=== PATIENT | female | born 1960 | race Caucasian/White ===

== ENCOUNTER 2023-08-13 06:46 | Day surgery (SDC) | payer MEDICARE ==
[2023-07-31 14:44] VITALS: BP 115/72
[~2023-08-13] VITALS: Ht 160 cm; Wt 100.0 kg
[~2023-08-13 06:46] MED LIST: CRANBERRY450 M2 PO; EFFEXOR XR75 MG PO; HYDROCHLOROTHIA25 MG PO; LACTATED RINGER'S 1,000 ML IV SCH; LEVOTHYROXINE175 MC1 PO; LOVENOX100 MG/1 M; OMEPRAZOLE20 M1 PO; PRAMIPEXOLE D0.25 MG PO; VITAMIN D325 MC4 PO; WARFARIN SODIU2.5 MG PO; ZESTRIL10 MG PO; ZOCOR20 MG PO
[2023-08-13] MEDS ORDERED: ondansetron HCL 4 MG TAB PO SCH (07:00)
[2023-08-13] MEDS ORDERED: PANTOPRAZOLE SODIUM 40 MG TABEC PO SCH (07:00)
[2023-08-13] MEDS ORDERED: INTRA-ARTICULAR ANALGESIC INJECTION XX SCH (07:00)
[2023-08-13] MEDS ORDERED: OXYCODONE HCL 5 MG TAB PO SCH (07:00)
[2023-08-13] MEDS ORDERED: IBLOOD GLUCOSE TEST STRIP 1 EA TEST VI PRN (07:00)
[2023-08-13] MEDS ORDERED: ROPIVACAINE IN 0.9% SOD CHL/PF 545 ML ELS.PMP.HR IRRIGATION SCH (07:00)
[2023-08-13] MEDS ORDERED: LIDOCAINE HCL 1% 5 ML SDV INJ ONE (07:00)
[2023-08-13] MEDS ORDERED: GABAPENTIN 600 MG TAB PO SCH (07:00)
[2023-08-13] MEDS ORDERED: CEFAZOLIN SODIUM 2 GM/20 ML SYR IV SCH ×2 (07:00→18:00)
[2023-08-13] MEDS ORDERED: TRANEXAMIC ACID 2,000 MG in SODIUM CHLORIDE 0.9% 100 ML IV SCH (07:00)
[2023-08-13 07:07] VITALS: BP 152/73
[2023-08-13] MEDS ORDERED: BUPROPION XL300 MG PO (07:12)
[2023-08-13] MEDS ORDERED: HYDROCODON-ACE1 EA10 PO (07:13)
--- NOTE | 2023-08-13 07:37 | NUR ---
VISITED DURING SPIRITUAL CARE ROUNDS. PT RECEIVING NURSING CARE. DID NOT INTERRUPT. PROVIDED PRAYER.
--- NOTE | 2023-08-13 07:42 | NUR ---
VISITED DURING SPIRITUAL CARE ROUNDS. PT AND SUPPORT PERSON EXHIBIT STRONG RELATIONAL RESOURCES, DENIED IMMEDIATE NEEDS. PROVIDED SUPPORTIVE PRESENCE, HOSPITALITY, ANTICIPATORY GUIDANCE, PRAYER. PT AND ELECTROCARDIOGRAPH REPAIRER EXPRESSED GRATITUDE, HOPE.
[2023-08-13] MEDS ORDERED: Ropivacaine HCl 20 MG/10 ML AMP ONE (07:49)
[2023-08-13] MEDS ORDERED: MIDAZOLAM HCL 2 MG/2 ML VIAL ONE (09:32)
[2023-08-13] MEDS ORDERED: SODIUM CHLORIDE 0.9% 20 ML IV ONE (09:32)
[2023-08-13] MEDS ORDERED: dexmedeTOMIDine HCl 200 MCG/2 ML VIAL ONE (09:32)
[2023-08-13] MEDS ORDERED: DEXAMETHASONE SOD PHOS 4 MG/ML VIAL ONE (09:32)
[2023-08-13] MEDS ORDERED: Ropivacaine HCl 0.5% 30 ML VIAL ONE (09:32)
[2023-08-13] MEDS ORDERED: LIDOCAINE HCL 2% 5 ML SDV ONE ×2 (09:32→10:33)
[2023-08-13 10:14] LABS: INR 1.07 (0.80-1.30); PROTIME 13.2 Sec (11.2-14.2)
[2023-08-13] MEDS ORDERED: KETOROLAC TROMETHAMINE 15 MG/ML VIAL IV PRN (10:15)
[2023-08-13] MEDS ORDERED: OXYCODONE HCL 5 MG TAB PO PRN (10:15)
[2023-08-13] MEDS ORDERED: propofoL 200 MG/20 ML VIAL ONE (10:33)
[2023-08-13] MEDS ORDERED: TRANEXAMIC ACID 1,000 MG/10 ML AMP ONE (11:05)
[2023-08-13] MEDS ORDERED: LACTATED RINGER'S 1,000 ML IV ONE (11:47)
[2023-08-13] MEDS ORDERED: KETOROLAC TROMETHAMINE 30 MG/ML VIAL ONE (11:49)
[2023-08-13] MEDS ORDERED: SENNA LAX8.6 MG PO (12:08)
[2023-08-13] MEDS ORDERED: GABAPENTIN300 MG PO (12:08)
[2023-08-13] MEDS ORDERED: OXYCODONE HCL5 MG PO (12:08)
[2023-08-13] MEDS ORDERED: TRANEXAMIC ACID 2,000 MG in SODIUM CHLORIDE 0.9% 100 ML IV ONE (13:00)
[2023-08-13 13:02] VITALS: BP 144/78
--- NOTE | 2023-08-13 13:06 | NUR ---
08/13/23 1306 Miriam Lunsford 1205 PT ARRIVED IN PACU WIDE AWAKE WITH NO C/O'S. ON QUE SET AT 4ML/HR. 1213 XRAY DONE AT BEDSIDE. 1220 CRYO CUFF PLACED ON L KNEE. PT C/O TIGHTNESS BEHIND L KNEE. PLACED PILLOW FOR COMFORT WITH NO SUCCESS. 1230 PILLOW REMOVED AND PT MOVING BILAT LEGS. 1245 GLASSES RETURNED TO PT. 1300 TO DS. REPORT GIVEN TO RN.
--- NOTE | 2023-08-13 13:11 | NUR ---
le 1300 PATIENT ALERT AND ORIENTED. BREATHING EQUAL AND UNLABORED. OXYGEN SATURATIONS ABOVE 90% ON 1 LITER. TITRATED DOWN TO ROOM AIR. PATIENT DENIES BEING NAUSEATED. PATIENT SURGICAL DRESSING CLEAN, DRY AND INTACT. SCD'S ON. CRYO CUFF ON. IVF INFUSING. CMST INTACT. PATIENT SPINAL RESOLVED. DAUGHTER AT BEDSIDE. CALL LIGHT WITHIN REACH. NO FUTHER NEEDS. NO QUESTIONS AT THIS TIME.
[2023-08-13 13:54] VITALS: BP 112/71
--- NOTE | 2023-08-13 14:38 | NUR ---
PT LEAVES THE DEPARTMENT WITH PHYSICAL THERAPY.
[2023-08-13] MEDS ORDERED: ACETAMINOPHEN 500 MG TAB PO SCH (15:00)
[2023-08-13] MEDS ORDERED: GABAPENTIN 300 MG CAP PO SCH (15:00)
[2023-08-13 15:14] VITALS: BP 120/61
--- NOTE | 2023-08-13 16:44 | NUR ---
LE 1356-PT LAYING IN BED AWAKE WATCHING TV. RESP EVEN AND UNLABORED. REPORTS SOME DISCOMFORT BEHIND KNEE. DENIES NAUSEA. DRESSING IS CLEAN, DRY, AND INTACT. ON-Q PUMP SET AT 4. CRYO CUFF IN PLACE AND RUNNING. NO OTHER NEEDS AT THIS TIME. DAUGHTER IN ROOM. CALL LIGHT WITHIN REACH.
--- NOTE | 2023-08-13 16:47 | NUR ---
LE 1514-PT LAYING IN BED. RESP EVEN AND UNLABORED. DENIES NAUSEA. DRESSING CLEAN, DRY, AND INTACT. ON-Q PUMP SET AT 4. CRYO CUFF IN PLACE AND RUNNING. PT DRINKING WATER. DAUGHTER AT BEDSIDE. NO OTHER NEEDS AT THIS TIME. CALL LIGHT WITHIN REACH.
--- NOTE | 2023-08-13 16:54 | NUR ---
LE 1600-PT UP TO RESTROOM. PT VOIDS 200ML OF YELLOW URNIE. LE 1604-PT BACK TO ROOM AND GETTING DRESSED. DAUGHTER IN ROOM TO HELP PT.
--- NOTE | 2023-08-13 16:56 | NUR ---
RONIT 1632-WENT OVER DISCHARGE INSTRUCTIONS. WENT OVER POSTOP MEDICATIONS. ALL QUESTIONS ANSWERED. PT AMBULATES TO WHEELCHAIR AND RIDE PROVIDED TO FRONT OF HOSPITAL WHERE BHAVIN WAS WAITING WITH THE CAR.
[2023-08-13] MEDS ORDERED: SENNOSIDES 1 TAB PO SCH (21:00)
--- NOTE | 2023-08-14 07:03 | OR ---
[facility] [address], [place] [address] Signed DATE OF OPERATION: 08/13/2023 SURGEON: Vivienne Reyes MD PREOPERATIVE DIAGNOSIS: Severe degenerative joint disease, left knee. POSTOPERATIVE DIAGNOSIS: Severe degenerative joint disease, left knee. PROCEDURE PERFORMED: Left total knee arthroplasty with James. PEARL TECHNICIAN: None. ANESTHESIA: Spinal. BLOOD LOSS: 165 mL. IMPLANTS: Jakob Triathlon size 3, 11 mm polyethylene and a 32 mm patella. BRIEF HISTORY: Raj is a 63-year-old female with progressive worsening of osteoarthritis, nonresponsive to nonoperative treatment. Risks and benefits of operative treatment were discussed with her and she elected to proceed. DESCRIPTION OF PROCEDURE: Once consent was obtained, she was taken to the operating room. After adequate anesthesia, she was placed on the operating table with a hip bump. The left leg was then prepped and draped in a standard sterile fashion. Standard anterior approach through a midline incision was carried through the skin and subcutaneous tissue, and skin flaps were raised medially and laterally. We did encounter several extremely large varicose veins in the anterior inferior aspect of the incision. These were cauterized as we went. A low midvastus arthrotomy was performed and the infrapatellar fat pad was excised. The MCL was elevated as a sleeve around the posteromedial corner. The anterior horns of menisci were transected and the ACL was transected. PCL was found to Electronically Signed By: VIVIENNE REYES MD 08/14/23 0703 PATIENT NAME: RAJ PATEL OPERATIVE REPORT DATE OF : 56 REPORT #: [id number] PHYSICIAN: VIVIENNE REYES MD PCP: KENA ROBLERO MD REPORT IS CONFIDENTIAL AND NOT TO BE RELEASED WITHOUT AUTHORIZATION [facility] [address], [place] [address] Signed be intact. The computer arrays for the James were then placed in the medial femoral condyle and proximal tibia. The leg was then registered with computer followed by the fine anatomic points of the knee. The four poses for ligamentous tensioning were undertaken and appropriate changes were made to the computer plan. The robot was then brought in. The four straight cuts and two angle cuts were made with care taken to protect the patellar tendon and MCL. The bony remnants were removed as were any remaining osteophytes. The posterior osteophytes removed off the femur and no release was performed. The trials were then positioned and the knee was taken through range of motion and found to be good tension with 11 mm polyethylene. The patella was cut sized and drilled for a 32 mm patella. This was then taken through range of motion and found to be nicely tracking. The distal femoral drill holes were finished. The proximal tibia was finished using the keel punch and drill holes. The tibia was impacted into position first followed by the polyethylene. The femur was then impacted until it was well seated and the knee was extended and loaded. Patella was clamped into position and the clamp was removed. Once again, the patellar tracking was found to be excellent. The knee was irrigated with one bottle of Surgiphor followed by normal saline. The periarticular soft tissues were injected with 80 mL of ropivacaine and Toradol mixture. The arthrotomy was then closed using a combination of #2 FiberWire and #2 Stratafix, subcutaneous tissue with 0 Stratafix and the skin with mir. Wounds were dressed with Acticoat-7 dressing, ABDs, and Marty wrap. She tolerated the procedure well. All sponge, needle, and instrument counts were correct. Vivienne Reyes MD BA/MODL /[id number] Copies: ~ Electronically Signed By: VIVIENNE REYES MD 08/14/23 0703 PATIENT NAME: RAJ PATEL OPERATIVE REPORT DATE OF : 56 REPORT #: [id number] PHYSICIAN: VIVIENNE REYES MD PCP: KENA ROBLERO MD REPORT IS CONFIDENTIAL AND NOT TO BE RELEASED WITHOUT AUTHORIZATION
[2023-08-14] MEDS ORDERED: DICLOFENAC SOD 75 MG TABEC PO SCH (08:00)
== END 2023-08-13 16:32 | disposition home or self-care (01) ==
LOC: DS 06:46
PROVIDERS: Nurse Anesthetist, Certified Registered; ATTEND Specialist
PROC: 3E0T3BZ Introduction of Anesthetic Agent into Peripheral Nerves and Plexi, Percutaneous Approach (ICD-10-PCS; 2023-08-13)
PROC: 3E0T3BZ Introduction of Anesthetic Agent into Peripheral Nerves and Plexi, Percutaneous Approach (ICD-10-PCS; 2023-08-13)
PROC: 0SRD0JZ Replacement of Left Knee Joint with Synthetic Substitute, Open Approach (ICD-10-PCS; principal; 2023-08-13 11:50)
DX: M17.12 Unilateral primary osteoarthritis, left knee (principal); G89.18 Other acute postprocedural pain; I10 Essential (primary) hypertension; E03.9 Hypothyroidism, unspecified; K21.9 Gastro-esophageal reflux disease without esophagitis; E78.00 Pure hypercholesterolemia, unspecified; Z88.1 Allergy status to other antibiotic agents; Z88.2 Allergy status to sulfonamides; Z91.048 Other nonmedicinal substance allergy status; Z79.890 Hormone replacement therapy; Z79.899 Other long term (current) drug therapy
CPT/HCPCS: 01400; 36415; 64447; 64450; 73560; 76942; 84132; 85610; 93005; 93010; 97161; A9270; C1713; C1776; J0690; J1100; J1885; J2001; J2250; J2704; J2795; J7121; J7999

== ENCOUNTER 2023-12-03 05:40 | Day surgery (SDC) | payer MEDICARE ==
[2023-11-22 11:38] VITALS: BP 120/78
[~2023-12-03] VITALS: Ht 160 cm; Wt 100.0 kg
[~2023-12-03 05:40] MED LIST changes: +ADVIL200 M1 PO; +BUPROPION XL300 MG PO; +GABAPENTIN300 MG PO; +HYDROCODON-ACE1 EA10 PO; +OXYCODONE HCL5 MG PO; +SENNA LAX8.6 MG PO; +TYLENOL325 MG PO
[2023-12-03 06:05] VITALS: BP 154/82
[2023-12-03] MEDS ORDERED: GABAPENTIN300 MG PO ×2 (06:26→09:13)
[2023-12-03] MEDS ORDERED: PREDNISONE20 MG PO (06:27)
[2023-12-03] MEDS ORDERED: Ropivacaine HCl 20 MG/10 ML AMP ONE (06:31)
[2023-12-03 06:33] LABS: INR 0.96 (0.80-1.30); PROTIME 12.1 Sec (11.2-14.2)
[2023-12-03] MEDS ORDERED: LIDOCAINE HCL 2% 20 MG/ML VIAL INJ ONE (06:40)
[2023-12-03] MEDS ORDERED: DEXAMETHASONE SOD PHOS 4 MG/ML VIAL ONE (06:40)
[2023-12-03] MEDS ORDERED: Ropivacaine HCl 0.5% 30 ML VIAL ONE (06:40)
[2023-12-03] MEDS ORDERED: SODIUM CHLORIDE 0.9% 20 ML IV ONE (06:40)
[2023-12-03] MEDS ORDERED: propofoL 200 MG/20 ML VIAL ONE ×2 (06:40→07:47)
[2023-12-03] MEDS ORDERED: LIDOCAINE HCL 1% 5 ML SDV INJ ONE (07:00)
[2023-12-03] MEDS ORDERED: OXYCODONE HCL 5 MG TAB PO SCH (07:00)
[2023-12-03] MEDS ORDERED: ROPIVACAINE IN 0.9% SOD CHL/PF 545 ML ELS.PMP.HR IRRIGATION SCH (07:00)
[2023-12-03] MEDS ORDERED: TRANEXAMIC ACID 2,000 MG in SODIUM CHLORIDE 0.9% 100 ML IV SCH (07:00)
[2023-12-03] MEDS ORDERED: CEFAZOLIN SODIUM 2 GM/20 ML SYR IV SCH (07:00)
[2023-12-03] MEDS ORDERED: IBLOOD GLUCOSE TEST STRIP 1 EA TEST VI PRN ×2 (07:00→08:45)
[2023-12-03] MEDS ORDERED: PANTOPRAZOLE SODIUM 40 MG TABEC PO SCH (07:00)
[2023-12-03] MEDS ORDERED: ondansetron HCL 4 MG TAB PO SCH (07:00)
[2023-12-03] MEDS ORDERED: INTRA-ARTICULAR ANALGESIC INJECTION XX SCH (07:00)
[2023-12-03] MEDS ORDERED: GABAPENTIN 600 MG TAB PO SCH (07:00)
[2023-12-03] MEDS ORDERED: CLINDAMYCIN PHOSPHATE/D5W 900 MG/50 ML BAG IV ONE ×2 (07:15→13:45)
[2023-12-03] MEDS ORDERED: OXYCODONE HCL 5 MG TAB PO PRN (07:15)
[2023-12-03] MEDS ORDERED: KETOROLAC TROMETHAMINE 30 MG/ML VIAL IV PRN (07:15)
--- NOTE | 2023-12-03 07:25 | NUR ---
VISITED DURING SPIRITUAL CARE ROUNDS. PT APPEARED TO BE IN OVERALL GOOD SPIRITS; NO SIGNIFICANT SIGNS OF ANXIETY, DENIED IMMEDIATE NEEDS. JOB COUNSELOR PROVIDED SUPPORTIVE PRESENCE, HOSPITALITY, PRAYER, FACILITATED INTERACTION WITH THERAPY ANIMAL. PT EXPRESSED GRATITUDE, CONFIDENCE.
[2023-12-03] MEDS ORDERED: LIDOCAINE HCL 2% 5 ML SDV ONE (07:47)
[2023-12-03] MEDS ORDERED: ondansetron HCL 4 MG/2 ML VIAL ONE (07:47)
[2023-12-03] MEDS ORDERED: TRANEXAMIC ACID 1,000 MG/10 ML AMP ONE (08:13)
[2023-12-03] MEDS ORDERED: MIDAZOLAM HCL 5 MG/5 ML VIAL ONE (08:19)
[2023-12-03] MEDS ORDERED: fentaNYL citrate 100 MCG/2 ML VIAL ONE (08:19)
[2023-12-03] MEDS ORDERED: droPERidol 5 MG/2 ML VIAL IV PRN (08:45)
[2023-12-03] MEDS ORDERED: PROCHLORPERAZINE EDISYLATE 10 MG/2 ML VIAL IV PRN (08:45)
[2023-12-03] MEDS ORDERED: fentaNYL citrate 50 MCG/ML SDV IV PRN (08:45)
[2023-12-03] MEDS ORDERED: HYDROmorphone HCL 1 MG/ML SYR IV PRN (08:45)
[2023-12-03] MEDS ORDERED: ondansetron HCL 4 MG/2 ML VIAL IV PRN (08:45)
[2023-12-03] MEDS ORDERED: NALOXONE HCL 0.4 MG SYR IV PRN (08:45)
[2023-12-03] MEDS ORDERED: KETOROLAC TROMETHAMINE 30 MG/ML VIAL ONE (08:51)
[2023-12-03] MEDS ORDERED: SENNA LAX8.6 MG PO (09:13)
[2023-12-03] MEDS ORDERED: OXYCODONE HCL5 MG PO (09:13)
--- NOTE | 2023-12-03 09:39 | NUR ---
12/03/23 0939 Karen Reyes 0918 PT TO PACU AWAKE AND ALERT DENIES PAIN AND NAUSEA. 0920 EARTH BURNER AT BEDSIDE TAKING XRAY OF RT KNEE. 0930 PT ALERT AND AWAKE CONVERSING WITH STAFF. PT CONTINUES TO DENIE PAIN.
[2023-12-03 09:52] VITALS: BP 100/73
--- NOTE | 2023-12-03 10:07 | NUR ---
09-PT BACK TO ROOM FROM PACU ON RA. RECEIVED REPORT FROM DELFINA OGDEN. PT IS AWAKE. RATES PAIN 3/10. STATES UNCOMFORTABLE UNDER THE RIGHT KNEE. CRYO CUFF MOVED TO BACK SIDE OF RIGHT KNEE. PROVIDED PT WITH JELLO AND CRACKERS. PT TAKING SIPS OF WATER. NO OHTER NEEDS AT THIS TIME. CALL LIGHT WITHIN REACH.
[2023-12-03] MEDS ORDERED: TRANEXAMIC ACID 2,000 MG in SODIUM CHLORIDE 0.9% 100 ML IV ONE (11:00)
[2023-12-03 11:03] VITALS: BP 121/63
--- NOTE | 2023-12-03 12:03 | NUR ---
LE 1104-PT LAYING IN BED. HOB LOWERED. RESP EVEN AND UNLABORED. RATES PAIN 04/14. CRYO CUFF MOVED BACK TO FRONT OF KNEE. ON-Q PUMP AT 4. PT DRINKING WATER. NO OTHER NEEDS AT THIS TIME. CALL LIGHT WITHIN REACH.
[2023-12-03 12:08] VITALS: BP 133/72
--- NOTE | 2023-12-03 12:43 | NUR ---
LE 1208-PT LAYING IN BED. RESP EVEN AND UNLABORED. RATES PAIN 3/10 AND THIS IS TOLERABLE FOR HER AT THIS TIME. CRYO CUFF IN PLACE AND RUNNING. ON-Q PUMP SET AT 4. NO OTHER NEEDS AT THIS TIME. CALL LIGHT WITHIN REACH.
[2023-12-03 13:25] VITALS: BP 121/65
--- NOTE | 2023-12-03 13:37 | OR ---
[facility] [address] [place], [place] [address] Signed DATE OF OPERATION: 12/03/2023 SURGEON: Vivienne Reyes MD PREOPERATIVE DIAGNOSIS: Severe degenerative joint disease, right knee. POSTOPERATIVE DIAGNOSIS: Severe degenerative joint disease, right knee. PROCEDURE PERFORMED: Right total knee arthroplasty with James. CLINICAL BIOCHEMICAL GENETICIST: Khushi Davis PA-C. Khushi was present and critical for all portions of procedure. ANESTHESIA: Spinal. BLOOD LOSS: 185 mL. TOURNIQUET TIME: Zero. IMPLANTS: Jakob Triathlon size 3, 10 mm polyethylene and 32 mm patella. BRIEF HISTORY: Raj is a 63-year-old female with progressive worsening of osteoarthritis primarily in the anterior portion of the knee. She had undergone left total knee with good results, wished to proceed with the right. Risks, benefits, and alternatives of surgery were discussed with her and she elected to proceed. PROCEDURE IN DETAIL: Once consent was obtained, she was taken to the operating room. After adequate anesthesia, she was placed on the operating room table. All downside pressure points were well padded. A right hip bump was placed and the leg was prepped and draped in a standard sterile fashion. The leg was approached through a standard anterior midline Electronically Signed By: VIVIENNE REYES MD 12/03/23 1337 PATIENT NAME: RAJ PATEL OPERATIVE REPORT DATE OF : 56 REPORT #: [id number] PHYSICIAN: VIVIENNE REYES MD PCP: KENA ROBLERO MD REPORT IS CONFIDENTIAL AND NOT TO BE RELEASED WITHOUT AUTHORIZATION [facility] [address] [place], [place] [address] Signed incision, carried through the skin and subcutaneous tissue. A low subvastus approach was completed. The bleeders were cauterized as we went. The MCL was elevated as a sleeve around the posteromedial corner. The infrapatellar fat pad was excised. The ACL and lateral meniscus were transected. The PCL was found to be intact. The navigation guides were placed the medial femoral condyle and proximal tibia. The leg was registered with the computer followed by the fine anatomic points of the knee. Ligamentous registration was undertaken with significant laxity. Small changes were made to the position of the implant to create ligamentous balance. Once this was completed, the robot was brought in. The four straight cuts and two angle cuts were made with care taken to protect the patellar tendon. The bony remnants were removed as were any remaining osteophytes. The posterior osteophytes were removed off the femur and no release was performed. The trials were then positioned. The knee was taken through range of motion from 0-130 degrees with good stability throughout. The patella tracked nicely. Patella was cut sized and drilled for a 32 mm patella. The distal femoral drill holes were completed and the keel punch was used for the tibia followed by the drill holes. Once this was accomplished, the prosthesis was obtained. The tibia was impacted until it was well seated and flushed. The polyethylene was snapped into position and the femur was impacted. The knee was extended and loaded. The patella was clamped into position again with excellent bone purchase. The patella tracked well. The knee was then irrigated with Surgiphor followed by normal saline. The periarticular soft tissues were injected with 100 mL of ropivacaine and Toradol mixture. The On-Q pain pump was percutaneously placed into the adductor canal from the suprapatellar pouch. The arthrotomy was then closed using #2 Vicryl and #2 Stratafix. Subcutaneous tissue with 0 Stratafix and the skin with 3-0 Stratafix. Wound was sealed with LiquiBand and Steri-Strips, dressed with an Acticoat-7 dressing, ABD, and Marty wrap. She tolerated the procedure well. All sponge, needle, and instrument counts were correct. Vivienne Reyes MD BA/MODL /[id number] Electronically Signed By: VIVIENNE REYES MD 12/03/23 1337 PATIENT NAME: RAJ PATEL OPERATIVE REPORT DATE OF : 56 REPORT #: [id number] PHYSICIAN: VIVIENNE REYES MD PCP: KENA ROBLERO MD REPORT IS CONFIDENTIAL AND NOT TO BE RELEASED WITHOUT AUTHORIZATION [facility] [address] [place] [id number] Signed Copies: ~ Electronically Signed By: VIVIENNE REYES MD 12/03/23 1337 PATIENT NAME: RAJ PATEL OPERATIVE REPORT DATE OF : 56 REPORT #: [id number] PHYSICIAN: VIVIENNE REYES MD PCP: KENA ROBLERO MD REPORT IS CONFIDENTIAL AND NOT TO BE RELEASED WITHOUT AUTHORIZATION
--- NOTE | 2023-12-03 13:42 | NUR ---
1326-PT LAYING IN BED. RESP EVEN AND UNLABORED. RATES PAIN 2/10. ON-Q PUMP SET AT 4. CRYO CUFF IN PLACE AND RUNNING. NO OHTER NEEDS AT THIS TIME. 1327-PHYSICAL THERAPY IN ROOM WITH PT.
--- NOTE | 2023-12-03 13:44 | NUR ---
1343-PT AMBULATES WITH WALKER AND PHYSICAL THERAPY TO RESTROOM. PT VOIDS 300ML OF URINE. 1345-PHYSICAL THERAPY WITH PT.
[2023-12-03] MEDS ORDERED: GABAPENTIN 300 MG CAP PO SCH (15:00)
--- NOTE | 2023-12-03 15:40 | NUR ---
LE 1400-PT BACK TO ROOM FROM PHYSICAL THERAPY. LE 1405-PT READY TO GO HOME. PT WILL GET DRESSED. CALL LIGHT WITHIN REACH.
--- NOTE | 2023-12-03 15:43 | NUR ---
LE 1420-WENT OVER DISHCARGE INSTRUCTIONS WITH PT AND FRIEND. WENT OVER DISCHARGE MEDICATIONS. ALL QUESTIONS ANSWERED. LE 1425-PT AMBULATES WITH WALKER TO WHEELCHAIR AND RIDE PROVIDED TO FRONT OF HOSPITAL WHERE FRIEND WAS WAITING WITH THE CAR.
[2023-12-03] MEDS ORDERED: SENNOSIDES 1 TAB PO SCH (21:00)
[2023-12-04] MEDS ORDERED: DICLOFENAC SOD 75 MG TABEC PO SCH (08:00)
[2023-12-04] MEDS ORDERED: Rivaroxaban 10 MG TAB PO SCH (08:00)
== END 2023-12-03 14:20 | disposition home or self-care (01) ==
LOC: DS 05:40
PROVIDERS: Nurse Anesthetist, Certified Registered; ATTEND Specialist
PROC: 0SRC0JZ Replacement of Right Knee Joint with Synthetic Substitute, Open Approach (ICD-10-PCS; principal; 2023-12-03 07:45)
DX: M17.0 Bilateral primary osteoarthritis of knee (principal); Z88.2 Allergy status to sulfonamides; Z79.899 Other long term (current) drug therapy
CPT/HCPCS: 01400; 36415; 64447; 64450; 64454; 73560; 76942; 85610; 97161; 97530; A9270; C1713; C1776; J1100; J1885; J2003; J2250; J2405; J2704; J2795; J3010; J3490; J7121; J7999

== ENCOUNTER 2024-03-31 05:25 | Day surgery (SDC) | payer MEDICARE, OTHER ==
[2024-03-25 11:16] VITALS: BP 114/64
[~2024-03-31] VITALS: Ht 160 cm; Wt 96.4 kg
[~2024-03-31 05:25] MED LIST changes: +PREDNISONE20 MG PO
[2024-03-31 06:08] VITALS: BP 135/70
[2024-03-31] MEDS ORDERED: ENOXAPARIN100 MG/1 M SUB-Q (06:14)
[2024-03-31] MEDS ORDERED: IBLOOD GLUCOSE TEST STRIP 1 EA TEST VI PRN ×2 (07:00→09:15)
[2024-03-31] MEDS ORDERED: CEFAZOLIN SODIUM 2 GM/20 ML SYR IV SCH ×2 (07:00→15:00)
[2024-03-31] MEDS ORDERED: TRANEXAMIC ACID IN NACL,ISO-OS 1,000 MG/100 ML PIGGYBACK IV SCH (07:00)
[2024-03-31] MEDS ORDERED: LIDOCAINE HCL 1% 5 ML SDV INJ ONE (07:00)
[2024-03-31] MEDS ORDERED: INTRA-ARTICULAR ANALGESIC INJECTION XX SCH (07:00)
[2024-03-31] MEDS ORDERED: GABAPENTIN 600 MG TAB PO SCH (07:00)
[2024-03-31] MEDS ORDERED: Ropivacaine HCl 0.5% 30 ML VIAL ONE (07:23)
[2024-03-31] MEDS ORDERED: SODIUM CHLORIDE 0.9% 20 ML IV ONE ×2 (07:23→09:04)
[2024-03-31] MEDS ORDERED: MIDAZOLAM HCL 2 MG/2 ML VIAL ONE (07:23)
[2024-03-31] MEDS ORDERED: dexmedeTOMIDine HCl 200 MCG/2 ML VIAL ONE (07:24)
[2024-03-31] MEDS ORDERED: DEXAMETHASONE SOD PHOS 4 MG/ML VIAL ONE (07:24)
[2024-03-31] MEDS ORDERED: propofoL 200 MG/20 ML VIAL ONE (07:24)
[2024-03-31] MEDS ORDERED: LIDOCAINE HCL 2% 5 ML SDV ONE (07:24)
[2024-03-31] MEDS ORDERED: OXYCODONE HCL 5 MG TAB PO PRN (07:30)
[2024-03-31] MEDS ORDERED: ePHEDrine sulfate 50 MG/ML AMP ONE (08:19)
[2024-03-31] MEDS ORDERED: ROPIVACAINE IN 0.9% SOD CHL/PF 545 ML ELS.PMP.HR IRRIGATION ONE (08:53)
[2024-03-31] MEDS ORDERED: Ropivacaine HCl 20 MG/10 ML AMP ONE (08:54)
[2024-03-31] MEDS ORDERED: ROPIVACAINE IN 0.9% SOD CHL/PF 545 ML ELS.PMP.HR IRRIGATION SCH (09:00)
[2024-03-31] MEDS ORDERED: ondansetron HCL 4 MG/2 ML VIAL IV PRN (09:15)
[2024-03-31] MEDS ORDERED: NALOXONE HCL 0.4 MG SYR IV PRN (09:15)
[2024-03-31] MEDS ORDERED: fentaNYL citrate 50 MCG/ML SDV IV PRN (09:15)
[2024-03-31] MEDS ORDERED: OXYCODONE HCL5 MG PO (09:20)
[2024-03-31] MEDS ORDERED: GABAPENTIN300 MG PO (09:20)
[2024-03-31] MEDS ORDERED: SENNA LAX8.6 MG PO (09:21)
--- NOTE | 2024-03-31 09:38 | NUR ---
03/31/24 0938 Samantha Ortiz 0926-PT ARRIVES TO PACU VIA STRETCHER, RESTING SEMI FOWLERS, PT A+O X4 PT DENIES PAIN OR NAUSEA, VSS ON RA, RR EVEN AND UNLABORED. ICE APPLIED TO RT KNEE.
[2024-03-31 09:52] VITALS: BP 125/71
--- NOTE | 2024-03-31 10:04 | NUR ---
0922-PT BACK TO ROOM 6 FROM PACU ON RA. RECEIVED REPORT FROM FUAD OGDEN. PT IS AWAKE. RESP EVEN AND UNLABORED. RATES PAIN 3/10 AND THIS IS TOLERABLE FOR HER AT THIS TIME. PT EATING ICE CHIPS. DENIES A SNACK AT THIS TIME. NO OTHER NEEDS AT THIS TIME. CALL LIGHT WITHIN REACH.
[2024-03-31 10:50] VITALS: BP 120/61
--- NOTE | 2024-03-31 10:54 | NUR ---
PT LAYING IN BED WITH EYES CLOSED. PT OPENS EYES WITH VERBAL STIMULI AND ANSWERS QUESTIONS. RESP EVEN AND UNLABORED. RATES PAIN 2/10. DENIES NAUSEA. ON-Q PUMP SET AT [address]ACK IN PL[address]. NO OTHER NEEDS AT THIS TIME. CALL LIGHT WITHIN REACH.
[2024-03-31 11:49] VITALS: BP 125/63
[2024-03-31 13:04] VITALS: BP 126/67
[2024-03-31] MEDS ORDERED: GABAPENTIN 300 MG CAP PO SCH (15:00)
[2024-03-31] MEDS ORDERED: ACETAMINOPHEN 500 MG TAB PO SCH (15:00)
--- NOTE | 2024-03-31 15:09 | NUR ---
1149-PT AWAKE. RESP EVEN AND UNLABORED. FAMILY IN ROOM. ON-Q PUMP SET AT 4. DRESSING IS CLEAN, DRY, AND INTACT. 1154-PT UP TO SIDE OF BED. MOVES SELF OVER TO BEDSIDE COMMODE WITH 1 RN ASSIST. PT VOIDS 250ML. 1201-PT BACK TO BED. LUNCH ORDERED. PROVIDED PT WITH WATER. NO OTHER NEEDS AT THIS TIME. CALL LIGHT WITHIN REACH.
--- NOTE | 2024-03-31 15:11 | NUR ---
LE 1229-PHYSICAL THERAPY IN WITH PT. LE 1300-PT BACK TO ROOM FROM PHYSICAL THERAPY. LE 1304-PT SITTING UP IN BED. RESP EVEN AND UNLABORED. DENIES NAUSEA. PAIN TOLERABLE. STATES ADHESIVE BANDAGE FEELS TIGHT WHEN SHE BENDS HER KNEE. WILL TALK WITH DR. FLORES RE THIS. PT EATING LUNCH. LE 1308-PHONE CALL TO DR. FLORES WITH UPDATE. PT WILL NEED TO LEAVE BANDAGE IN PLACE. LE 1310-TALKED WITH PT RE BANDAGE. SHE WILL LEAVE IN PLACE. LE 1330-PT WILL GET DRESSED, DAUGHTER IN ROOM TO HELP. CALL LIGHT WITHIN PLACE.
--- NOTE | 2024-03-31 15:52 | NUR ---
RONIT 1345-PT AMBULATES TO WHEELCHAIR AND RIDE PROVIDED TO FRONT OF [facility] WHERE DAUGHTER WAS WAITING WITH THE CAR.
[2024-03-31] MEDS ORDERED: SENNOSIDES 1 TAB PO SCH (21:00)
--- NOTE | 2024-04-01 13:23 | OR ---
[facility] [address] [place], [place] [address] Signed DATE OF OPERATION: 03/31/2024 SURGEON: Vivienne Reyes MD PREOPERATIVE DIAGNOSIS: Inferior pole patellar fracture, right. POSTOPERATIVE DIAGNOSES: 1. Inferior pole patellar fracture, right. 2. Aseptic loosening patella, left knee. PROCEDURE PERFORMED: Revision of left patellar component. STATISTICAL DEVELOPER: Khushi Davis PA-C. Khushi was present and critical for all portions of procedure. ANESTHESIA: Spinal. BLOOD LOSS: 100 mL. TOURNIQUET TIME: Zero. IMPLANTS: A 29 cemented patella. BRIEF HISTORY: Raj is a 64-year-old female who was seen on a routine followup and noted to have an inferior pole patella fracture. The inferior PEG of the patellar component was noted to be outside of the bone on the x-ray. I felt that this probably represented an impending problem with the patella in terms of it loosening and perhaps coming off. Risks, benefits, and alternatives of surgery were discussed with her. Workup for infection was negative. DESCRIPTION OF PROCEDURE: Once consent was obtained, she was taken to the operating room. After adequate Electronically Signed By: VIVIENNE REYES MD 04/01/24 1323 PATIENT NAME: RAJ PATEL OPERATIVE REPORT DATE OF : 56 REPORT #: [id number] PHYSICIAN: VIVIENNE REYES MD PCP: KENA ROBLERO MD REPORT IS CONFIDENTIAL AND NOT TO BE RELEASED WITHOUT AUTHORIZATION [facility] [address] [place], [place] [address] Signed anesthesia she was placed on operating room table. All downside pressure points were well padded. The right leg was prepped and draped in a standard sterile fashion. The previous incision was incised longitudinally and carried through the skin and subcutaneous tissue. Skin flaps were developed medially and laterally. A subvastus arthrotomy was then performed. The soft tissues surrounding the patella was removed. In the process of this, we did remove that piece of bone as well. Once we got down to the patellar component we carefully pried on it and examined it and found it to be moving at the inferior half. I felt that the superior half was probably tacked down, but this was an unstable component and will need to be revised. Then using a series of small osteotomes and the small sagittal saw, we were able to remove the patellar relatively atraumatically. There was an area of fretting inferiorly where there was clear loosening of the patellar component. The bone was then freshened up and cleared and sized for a 29 symmetric patella. The drill guide was clamped into position and the three drill holes were made. The symmetric patella was obtained and the cement was mixed and placed on the component and the patellar bone. The patella was then carefully seated into position and clamped and the excess cement was removed. The clamp was held for 12 minutes until the cement had hardened. Any remaining bone cement was then removed using a rongeur. The patellar tracking was noted to be good and the periarticular soft tissues were injected with 60 mL of Toradol ropivacaine mixture. The On-Q pain pump was percutaneously placed into the adductor canal. The knee was then copiously irrigated with one bottle of Surgiphor followed by normal saline. The arthrotomy was then closed using a combination of #2 FiberWire and #2 Stratafix. Subcutaneous tissue with 0 Stratafix and skin with 3-0 Stratafix. The wound was sealed with LiquiBand and Steri-Strips and dressed with Acticoat-7 dressing, ABD, and Marty wrap. She tolerated the procedure well. All sponge, needle, and instrument counts were correct. Vivienne Reyes MD BA/MODL /[id number] Electronically Signed By: VIVIENNE REYES MD 04/01/24 1323 PATIENT NAME: RAJ PATEL OPERATIVE REPORT DATE OF : 56 REPORT #: [id number] PHYSICIAN: VIVIENNE REYES MD PCP: KENA ROBLERO MD REPORT IS CONFIDENTIAL AND NOT TO BE RELEASED WITHOUT AUTHORIZATION [address] [place] [address] Signed Copies: ~ Electronically Signed By: VIVIENNE REYES MD 04/01/24 1323 PATIENT NAME: RAJ PATEL OPERATIVE REPORT DATE OF : 56 REPORT #: [id number] PHYSICIAN: VIVIENNE REYES MD PCP: KENA ROBLERO MD REPORT IS CONFIDENTIAL AND NOT TO BE RELEASED WITHOUT AUTHORIZATION
== END 2024-03-31 13:45 | disposition home or self-care (01) ==
LOC: DS 05:25 → EDSTATUS 07:00 → DS 08:00
PROVIDERS: ATTEND Specialist
PROC: 0SWD0JC Revision of Synthetic Substitute in Left Knee Joint, Patellar Surface, Open Approach (ICD-10-PCS; principal; 2024-03-31 08:00)
DX: S82.001A Unspecified fracture of right patella, initial encounter for closed fracture (principal); T84.033A Mechanical loosening of internal left knee prosthetic joint, initial encounter; I10 Essential (primary) hypertension; E03.9 Hypothyroidism, unspecified; E78.00 Pure hypercholesterolemia, unspecified; K21.9 Gastro-esophageal reflux disease without esophagitis; Z88.2 Allergy status to sulfonamides; Z88.8 Allergy status to other drugs, medicaments and biological substances; Y83.8 Other surgical procedures as the cause of abnormal reaction of the patient, or of later complication, without mention of misadventure at the time of the procedure; X58.XXXA Exposure to other specified factors, initial encounter
CPT/HCPCS: 01402; 64447; 64450; 85025; 97161; 97530; A9270; C1713; C1776; J0690; J1100; J2003; J2250; J2704; J2795; J7121; J7999